=== PATIENT | male | born 1945 | race African-American/Black ===

== ENCOUNTER → 2018-10-30 | Outpatient (CLI) | payer OTHER ==
[~2018-10-30] MED LIST: ALEVE220 MG PO; CRESTOR10 MG PO; NORVASC5 MG PO
--- NOTE | 2018-10-31 08:12 | EKG ---
[place] [address] [facility] [place] [place] [address] ELECTROCARDIOGRAM REPORT Name: TL THOMASSHANNON Restrepo Room #: [facility]#: [id number] ������������������ Admission: 10/30/18 ������������������ Attend Phys: Kierra Regan MD Discharge: ������������������ Date of : 45 Report #: [id number] ����������������������������������������������������������������� [id number] THIS REPORT FOR: //name// [facility] Test Date: 2018-10-30 Test Time: 15:35:35 Pat Name: AMARILYS THOMAS Department: Room: Gender: Medical Practitioners: reece : 1945 Requested By: Kierra Regan Order Number: [id number] MD: Carlos Mai Measurements Intervals [place] Rate: 62 P: 33 UT: 146 QRS: -1 QRSD: 102 T: 41 QT: 406 QTc: 413 Interpretive Statements Sinus rhythm Paired ventricular premature complexes Inferior infarct, old No previous ECG available for comparison Electronically Signed On 10-31-2018 8:12:00 CDT by Carlos Mai [email or web address] ��������������������������������������������� <ELECTRONICALLY SIGNED> ���������������������������������������� By: Carlos Mai MD, [facility] ��������������������������������������������� 10/31/18 0812 1535 1535 Carlos Mai MD, FACC /EPI
== END | disposition home or self-care (01) ==
LOC: LITH 15:16
DX: N20.1 Calculus of ureter (principal); I10 Essential (primary) hypertension; E78.00 Pure hypercholesterolemia, unspecified; I25.2 Old myocardial infarction; M10.9 Gout, unspecified; Z95.1 Presence of aortocoronary bypass graft; Z98.890 Other specified postprocedural states; Z79.899 Other long term (current) drug therapy; Z88.0 Allergy status to penicillin

== ENCOUNTER 2019-07-01 08:39 | Inpatient (IN) | payer OTHER ==
[2019-06-20 09:35] LABS: URINE BILIRUBIN NEGATIVE (Negative); URINE BLOOD 1+ (Negative); URINE CLARITY CLEAR; URINE COLOR YELLOW; URINE GLUCOSE-RANDOM* NEGATIVE (Negative); URINE KETONES NEGATIVE (Negative); URINE LEUKOCYTES-REFLEX NEGATIVE (Negative); URINE NITRITE-REFLEX NEGATIVE (Negative); URINE PROTEIN (DIPSTICK) NEGATIVE (Negative); URINE SPECIFIC GRAVITY >= 1.030 (1.005-1.035); URINE UROBILINOGEN 0.2 E.U./dl (0.2-1.0)
[2019-06-20 09:39] LABS: HEMATOCRIT 47.3 % (42.0-52.0); HEMOGLOBIN 15.6 gm/dL (14.0-18.0); MCH 30.8 pg (26.0-34.0); MCV 93.4 fL (80.0-100.0); RBC 5.06 mil/uL (4.50-6.00); RDW 13.6 % (10.5-14.5); WBC 4.3 thou/uL (4.0-11.0)
[2019-06-20 09:42] LABS: CASTS None Seen /LPF (None Seen); MUCUS >6 Heavy strn/LPF (None Seen); SQUAMOUS 0-3 Few /LPF (0-3)
[2019-06-20 09:43] LABS: ALBUMIN 4.1 g/dL (3.4-5.0); BACTERIA-REFLEX None Seen /HPF (None Seen); CALCIUM 9.4 mg/dL (8.5-10.1); CRYSTALS None Seen /LPF (None Seen); URINE RBC 0-2 Rare /HPF (0-2); URINE WBC-REFLEX 0-5 Rare /HPF (0-5)
[2019-06-20 09:44] LABS: INR 1.1; PROTIME 10.9 Seconds (9.3-11.4)
[~2019-07-01] VITALS: Ht 175.3 cm; Wt 83.9 kg
--- NOTE | ~2019-07-01 | O ---
[facility] [place] [address] OPERATIVE REPORT Name: AMARILYS THOMAS Room #: 442-P [facility] IN M.R.#: [id number] Admission: 07/01/19 Attend Phys: Aleksandr Dudley MD Discharge: Date of : 45 Report #: [id number] THIS REPORT FOR: //name// CC: Steffi Dudley DATE OF SERVICE: 07/01/2019 PREOPERATIVE DIAGNOSIS: Right hip osteoarthritis. POSTOPERATIVE DIAGNOSIS: Right hip osteoarthritis. PROCEDURE: Right total hip arthroplasty. SURGEON: Aleksandr Dudley MD. MATERIAL LOADER: Grazyna Chou PA-C. INDICATIONS FOR MATERIAL LOADER: Throughout the case, extensive retraction and manipulation of the hip was required including dislocation and reduction. This was afforded to me by my construction project assistant. ANESTHESIA: General. IMPLANTS: [employer]rí[employer]hew size 13 high offset Synergy press-fit stem, a size 62 R3 acetabular cup and a size 40, +4 cobalt chrome head. ESTIMATED BLOOD LOSS: 50 mL. COMPLICATIONS: None. SPECIMENS: None. CONDITION UPON LEAVING THE OPERATING ROOM: Stable. INDICATIONS FOR PROCEDURE: The patient is a 74-year-old gentleman with severe right hip osteoarthritis. He had failed conservative measures for this and after discussion with him, he elected for right total hip arthroplasty. DESCRIPTION OF PROCEDURE: Risks, benefits, alternatives, complications were discussed in detail with the patient including but not limited to risk of anesthesia, risk of damage to nerves, arteries, blood vessels, risk for infection, bleeding, risk for continued hip pain, leg length discrepancy, instability and need for reoperation. Informed consent was obtained from the patient. The right hip was appropriately marked in the preoperative holding area. IV clindamycin was given for preoperative antibiotics. He was brought to [address] [address] OPERATIVE REPORT Name: THOMASAMARILYS Room #: 442-P [facility] IN .R.#: [id number] Admission: 07/01/19 Attend Phys: Aleksandr Dudley MD Discharge: Date of : 45 Report #: [id number] the operating room and placed in supine position on operating room table. General anesthesia was induced without complication. He was placed in the left lateral decubitus position with the right hip. Uppermost right hip and lower extremity were prepped and draped in normal sterile fashion. Timeout was performed properly identifying the patient and procedure as well as instrumentation. All in the operating room were in agreement. Standard posterior approach to the hip was made with 10 blade through the skin. Dissection was taken down to the fascia with Bovie cautery and the fascia was cleaned with Duncan elevator. Fresh 10 blade was used to make a fascial incision. This was taken proximally and distally with curved Soria scissor. Charnley retractor was placed. Trochanteric bursa was taken down with Bovie cautery. Piriformis tendon was identified, tagged and taken down with Bovie cautery. Short external rotators were also taken down with Bovie cautery. Capsulotomy was made and capsule ends were tagged for later repair. Hip was dislocated and there was extensive osteoarthritis of the femoral head. Femoral neck cut was made 1 cm proximal to lesser trochanter based on preoperative templating and the femoral head was removed. Deep acetabular retractors were placed. The labrum was removed sharply. Pulvinar was removed with Bovie cautery. Acetabulum was then sequentially reamed up to a size 62 at which point, there was excellent bleeding cancellous bone. This was trialed with a 61 cup and found to have a good fit. A final size 62 R3 acetabular cup was placed and seated. One acetabular screw was placed for backup fixation and a polyethylene liner for a 40 head was placed. Attention was then turned to the femur. This was reamed and broached up to a size 13, at which point, the size 13 broach was stable. This was trialed with a high offset neck and a 40,+0 head. Hip was reduced, taken through range of motion, found to be stable, found to have short leg length on the right compared to left, and it was felt we could make up for this with the final implant. Hip was dislocated and broach was removed. A final size 13 high-offset Synergy press-fit stem was placed and seated. This was then trialed with a 40, +4 head. Hip was reduced, taken through range of motion, found to be stable, found to have equal leg lengths. Hip was dislocated one last time and a final size 40, +4 cobalt chrome head was placed. Hip was reduced, taken through range of motion, found to be stable, found to have equal leg lengths. After this, a periarticular injection consisting of morphine, ropivacaine, epinephrine and Toradol was placed around the hip joint capsule. A gram of vancomycin was placed in the joint. The capsule and piriformis were repaired with 0 FiberWire. The fascia was closed with 0 Vicryl, skin was closed with 2-0 Vicryl, 3-0 Monocryl. Dermabond and a SEEMA dressing was applied. The patient tolerated this procedure well anesthesia postoperatively. By: [id number] Aleksandr Dudley MD /nt
[~2019-07-01 08:39] MED LIST changes: +ALEVE220 M1 PO; +ASPIR 8181 MG PO; +CARVEDILOL3.125 MG PO; +ENTRESTO 24 MG1 EACH PO; +PLAVIX 75 MG TA75 MG PO; +ROSUVASTATIN CA20 MG PO
[2019-07-01 13:35] VITALS: BP 174/89
[2019-07-01 16:45] VITALS: BP 118/79
--- NOTE | 2019-07-01 18:33 | NUR ---
ASSUMED CARE OF THE PT AT 1700. PT PAIN LEVEL IS A 7, DOES NOT WANT PAIN MEDICATION AT THIS TIME. ON RA AT 97% O0 SAT. SCD'S IN PLACE, FALL PRECAUTIONS IN PLACE, CALL LIGHT WITHIN REACH. SKIN WARM TO TOUCH. CAP REFILL LESS THAN 3. ICE PACK AND SEEMA DRESSING INTACT. NOT READY TO ADVANCE DIET TO REG YET, WILL LET NURSE KNOW WHEN. SPOUSE IN ROOM AND WILL BE SPENDING THE NIGHT. BED IN LOWEST POSITION. LUNGS CLEAR, PULSES STRONG. WILL CONTINUE TO MONITOR THE PT.
[2019-07-01 21:10] VITALS: BP 96/66
[2019-07-02 03:45] VITALS: BP 85/56
--- NOTE | 2019-07-02 04:00 | NUR ---
PT WITH SEEMA DRSG AND ICE WAYLON TO R KNEE. STOOD UP TO USE URINAL WELL TAKE A FEW STEPS WITH WALKER.DENIES PAIN THRO NOC. BP ON THE SOFTER SIDE. OBSERVED DRINKING WATER, IV FLUIDS INFUSING,HS BP MEDS HELP. PT DENIES ANY SX RELATED TO LOW BP.ROOM AIR-SATTING OKAY.ABDUCTOR PILLOW IN PLACE, SCDS AND TEDS IN PLACE TOO.
[2019-07-02 06:10] LABS: HEMATOCRIT 39.1 % (42.0-52.0); HEMOGLOBIN 12.5 gm/dL (14.0-18.0); MCH 30.2 pg (26.0-34.0); MCV 94.4 fL (80.0-100.0); RBC 4.14 mil/uL (4.50-6.00); RDW 13.5 % (10.5-14.5); WBC 10.1 thou/uL (4.0-11.0)
[2019-07-02 07:35] VITALS: BP 93/65
--- NOTE | 2019-07-02 12:06 | NUR ---
INITIAL ASSESSMENT: Pt evaluated for d/c planning needs. Reviewed chart and spoke with nurse, PT, pt and spouse. Pt is alert and oriented. Pt lives in house with spouse of 47 years. Pt was independent with ADL's prior to admission to the hospital. Spouse works at [employer]. Pt has walker at home. Pt has not had home health in the past. Pt has scheduled outpatient PT at [facility] to begin on Monday. No other needs indicated.
[2019-07-02] MEDS ORDERED: ASPIR 8181 MG PO (12:43)
[2019-07-02] MEDS ORDERED: NEURONTIN 300300 M1 PO (12:43)
[2019-07-02 13:21] VITALS: BP 97/68
--- NOTE | 2019-07-02 14:29 | NUR ---
Assumed care of pt at 0700. Pt a&ox4. Pain controlled with prn pain meds. Pt worked with physical therapy. Dressing clean and intact. Up SBA with walker and gaitbelt. Family at bedside. Pt will discharge to home. Fall precautions in place.
== END 2019-07-02 15:10 | disposition home or self-care (01) | DRG 470 ==
LOC: TBA 08:39 → PRE 09:22 → TBA 09:26 → PRE 09:31 → TBA 12:33 → 4S 12:33 → TBA 13:22 → 4S 17:10
PROVIDERS: ADMIT Orthopaedic Surgery
PROC: 0SR901A Replacement of Right Hip Joint with Metal Synthetic Substitute, Uncemented, Open Approach (ICD-10-PCS; principal; 2019-07-01)
DX: M16.11 Unilateral primary osteoarthritis, right hip (principal); I42.0 Dilated cardiomyopathy; I25.10 Atherosclerotic heart disease of native coronary artery without angina pectoris; E78.00 Pure hypercholesterolemia, unspecified; I10 Essential (primary) hypertension; Z88.0 Allergy status to penicillin; Z23 Encounter for immunization; Z87.891 Personal history of nicotine dependence
CPT/HCPCS: 10102; 50010; 50101; 50382; 50414; 53000; 53078; 53367; 54118; 56524; 56527; 56528; 56530; 57095; 57103; 62110; 62900; 70005

== ENCOUNTER 2020-01-01 13:14 | Day surgery (SDC) | payer OTHER | END 2020-01-02 13:48 | disposition short-term general hospital (02) | LOC: OR 13:14 → TBA 13:15 → 4S 18:48 | DX: M17.12 Unilateral primary osteoarthritis, left knee (principal); M25.562 Pain in left knee; I10 Essential (primary) hypertension; E78.00 Pure hypercholesterolemia, unspecified; Z98.890 Other specified postprocedural states; Z79.899 Other long term (current) drug therapy; Z87.442 Personal history of urinary calculi; Z87.891 Personal history of nicotine dependence; Z95.1 Presence of aortocoronary bypass graft; Z98.41 Cataract extraction status, right eye; Z96.641 Presence of right artificial hip joint; Z88.0 Allergy status to penicillin ==

== ENCOUNTER → 2020-01-15 | Outpatient (CLI) | payer OTHER ==
[~2020-01-15] MED LIST changes: +ASA81BEC PO; +HYDROCODON-ACE1 EAC7 PO; +MS CONTIN15 MG PO; +NEURONTIN 300300 M1 PO; +NEURONTIN 300M300 M2 PO; +VITAMIN D350 MC3 PO
== END ==
LOC: CAT 11:18
PROVIDERS: ATTEND Orthopaedic Surgery
DX: I25.10 Atherosclerotic heart disease of native coronary artery without angina pectoris (principal)